=== PATIENT | male | born 2000 | race African-American/Black ===

== ENCOUNTER 2024-12-01 19:16 | Emergency (ER) | payer OTHER ==
[~2024-12-01] VITALS: Ht 177.8 cm; Wt 105.2 kg
[2024-12-01] MEDS: HYDROcodone/APAP 5/325 1 TAB TABLET PO STA (19:50)
[2024-12-01] MEDS: LIDOCAINE HCL 1% 20 ML VIAL INJ STA (20:05)
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
[2024-12-01 22:40] VITALS: BP 126/64; PULSE 79; RESP 18; TEMP 98.6; O2SAT 98
== END 2024-12-01 22:40 ==
LOC: EEVIPCON 19:16 → EDH 19:16
DX: S01.112A Laceration without foreign body of left eyelid and periocular area, initial encounter (principal); J45.909 Unspecified asthma, uncomplicated; I10 Essential (primary) hypertension; Y04.0XXA Assault by unarmed brawl or fight, initial encounter; Y93.89 Activity, other specified; Y92.89 Other specified places as the place of occurrence of the external cause; Y99.8 Other external cause status
CPT/HCPCS: 12013; 70450; 70486; 90471; 90714; 99285